=== PATIENT | male | born 1955 | race American Indian/Alaskan Native ===

== ENCOUNTER 2016-11-18 14:44 | Emergency (ER) | payer SELFPAY ==
--- NOTE | 2016-11-18 19:33 | Emergency Department Report ---
ED Medical Clearance HPI - General Chief complaint: Medical Clearance Stated complaint: MEDICINE REFILL Time Seen by Provider: 11/18/16 19:16 Source: patient, family Mode of arrival: Wheelchair - History of Present Illness Initial comments: Patient is a 61-year-old male past medical history of aortic aneurysm who presents for medication refill. Patient was an a [place] possible about 2 months ago for an abdominal aortic aneurysm. He spent 60 days in the hospital. And he was able to be discharged and flew back to [place] yesterday. Patient is not complain of any pain or any symptoms however the medication was sent home with has not been filled and is requesting a refill of 3 of his medications. He also needs placement due to him having trouble taking care of himself. Home medications: Previous Rx's Medication Instructions Recorded Last Taken Type Flecainide [Tambocor] 50 mg PO DAILY #60 tablet 11/18/16 Unknown Rx Metoprolol Xl [Metoprolol 25 mg PO QDAY #60 tablet 11/18/16 Unknown Rx SUCCINATE ER TAB] Pantoprazole [Protonix TAB] 40 mg PO QDAY #60 tablet 11/18/16 Unknown Rx Allergies/Adverse reactions: Allergies Allergy/AdvReac Type Severity Reaction Status Date / Time No Known Allergies Allergy Verified 11/18/16 15:49 ED Review of Systems ROS: Stated complaint: MEDICINE REFILL Other details as noted in HPI Constitutional: denies: chills, fever Eyes: denies: eye pain, eye discharge, vision change ENT: denies: ear pain, throat pain Respiratory: denies: cough, shortness of breath, wheezing Cardiovascular: denies: chest pain, palpitations Endocrine: no symptoms reported Gastrointestinal: denies: abdominal pain, nausea, diarrhea Genitourinary: denies: urgency, dysuria Musculoskeletal: other (left foot drop ). denies: back pain, joint swelling, arthralgia Skin: denies: rash, lesions Neurological: denies: headache, weakness, paresthesias Psychiatric: denies: anxiety, depression Hematological/Lymphatic: denies: easy bleeding, easy bruising ED Past Medical Hx - Past Medical History Previous Medical History?: No - Surgical History Past Surgical History?: Yes Additional Surgical History: thyroidectomy, and aortic aneurysm - Social History Smoking Status: Former Smoker Substance Use Type: None - Medications Home Medications: Home Medications Medication Instructions Recorded Confirmed Last Taken Type Flecainide [Tambocor] 50 mg PO DAILY #60 tablet 11/18/16 Unknown Rx Metoprolol Xl [Metoprolol 25 mg PO QDAY #60 tablet 11/18/16 Unknown Rx SUCCINATE ER TAB] Pantoprazole [Protonix TAB] 40 mg PO QDAY #60 tablet 11/18/16 Unknown Rx ED Physical Exam - General Limitations: Physical Limitation General appearance: alert, in no apparent distress - Head Head exam: Present: atraumatic, normocephalic - Eye Eye exam: Present: normal appearance - ENT ENT exam: Present: mucous membranes moist - Neck Neck exam: Present: normal inspection - Respiratory Respiratory exam: Present: normal lung sounds bilaterally. Absent: respiratory distress - Cardiovascular Cardiovascular Exam: Present: regular rate, normal rhythm. Absent: systolic murmur, diastolic murmur, rubs, gallop - GI/Abdominal GI/Abdominal exam: Present: soft, normal bowel sounds - Rectal Rectal exam: Present: deferred - Extremities Exam Extremities exam: Present: other (left foot drop ) - Back Exam Back exam: Present: normal inspection - Neurological Exam Neurological exam: Present: alert, oriented X3 - Psychiatric Psychiatric exam: Present: normal affect, normal mood - Skin Skin exam: Present: warm, dry, intact, normal color. Absent: rash ED Course Vital Signs 11/18/16 11/18/16 15:47 15:50 Temperature 98.5 F 98.5 F Pulse Rate 112 H 114 H Respiratory 18 18 Rate Blood Pressure 113/69 113/69 O2 Sat by Pulse 95 95 Oximetry ED Medical Decision Making - Medical Decision Making Cdx: Social issue ddx: Medication effect, encounter for home health I will write prescription for medication and I will send patient home with a referral for a primary care provider. Discussed outpatient and patient agrees with plan. Additional verbal discharge instructions were given. ED Disposition Clinical Impression: Medication refill, Social problem Disposition: [id number] TO HOME OR SELFCARE Is pt being admited?: No Does the pt Need Aspirin: No Condition: Stable Instructions: Self-Care Measures with a Chronic Disease (ED) Prescriptions: Flecainide [Tambocor] 50 mg PO DAILY #60 tablet Metoprolol Xl [Metoprolol SUCCINATE ER TAB] 25 mg PO QDAY #60 tablet Pantoprazole [Protonix TAB] 40 mg PO QDAY #60 tablet Referrals: EV NOBLE MD [Staff Physician] - 3-5 Days
[2016-11-19 05:00] VITALS: BP 114/81
== END 2016-11-18 20:00 | disposition home or self-care (01) ==
LOC: ED 14:44
DX: Z76.0 Encounter for issue of repeat prescription (principal); Z87.891 Personal history of nicotine dependence
CPT/HCPCS: 99282